=== PATIENT | male | born 1985 | race African-American/Black ===

== ENCOUNTER 2017-12-09 23:52 | Emergency (ER) | payer OTHER | END 2017-12-10 00:25 | disposition home or self-care (01) | LOC: MADERS 23:52 | DX: S60.461A Insect bite (nonvenomous) of left index finger, initial encounter (principal); L81.9 Disorder of pigmentation, unspecified; F17.210 Nicotine dependence, cigarettes, uncomplicated; W57.XXXA Bitten or stung by nonvenomous insect and other nonvenomous arthropods, initial encounter | CPT/HCPCS: 99282 ==

== ENCOUNTER 2018-01-20 20:22 | Emergency (ER) | payer OTHER | END 2018-01-20 20:51 | disposition home or self-care (01) | LOC: MADERS 20:22 | DX: B35.3 Tinea pedis (principal); F17.210 Nicotine dependence, cigarettes, uncomplicated; F20.9 Schizophrenia, unspecified | CPT/HCPCS: 99283 ==

== ENCOUNTER 2018-08-22 18:57 | Emergency (ER) | payer OTHER ==
[2018-08-22] MEDS ORDERED: Tetracaine 0.5% OPHTH SOLN/PF 4 ML BOT ONE (19:11)
== END 2018-08-22 19:28 | disposition home or self-care (01) ==
LOC: MADERS 18:57
DX: H16.133 Photokeratitis, bilateral (principal); F20.9 Schizophrenia, unspecified; F17.210 Nicotine dependence, cigarettes, uncomplicated; Z71.6 Tobacco abuse counseling
CPT/HCPCS: 99406

== ENCOUNTER 2019-07-07 13:59 | Emergency (ER) | payer OTHER ==
[2019-07-07 14:43] LABS: Bilirubin Negative (Negative); Blood, Urine Negative (Negative); Clarity Clear (Clear); Glucose, Urine (Dipstick) Negative (Negative); Leukocyte Negative (Negative); Nitrite Negative (Negative); Protein, Urine (Dipstick) Negative (Neg-Trace); Urobilinogen 0.2 mg/dL (Less than 2)
[2019-07-07 14:50] LABS: Amphetamine Not Detected (NotDetected); Barbiturates Screen Not Detected (NotDetected); Benzodiazepine Screen Not Detected (NotDetected); Cocaine Metabolite Screen Not Detected (NotDetected); Medtox Control Line Valid? VALID (VALID); Methadone Not Detected (NotDetected); Methamphetamine Not Detected (NotDetected); Opiate Screen Not Detected (NotDetected); Oxycodone Screen Not Detected (NotDetected); Phencyclidine (PCP) Not Detected (NotDetected); THC/Cannabinoid Screen Not Detected (NotDetected); Tricyclic Screen Not Detected (NotDetected)
[2019-07-07 14:51] LABS: Hemoglobin 13.7 g/dL (14.0-18.0); Mean Corpuscular Hemoglobin 26.8 pg (27.0-31.0); Mean Corpuscular Volume 91.8 fL (78.0-98.0); White Blood Cell (WBC) Count 11.8 thou/uL (4.8-10.8)
[2019-07-07 14:52] LABS: %Basophils 1.1 % (0.0-1.0); %Eosinophils 1.2 % (0.0-10.0); %Monocytes 7.4 % (0.0-10.0); %Neutrophils 72.3 % (42.0-75.0); Mean Corpuscular HGB CONC 29.2 g/dL (32.0-36.0); Platelet Count 250 thou/uL (130-400); RBC Distribution Width 12.1 % (11.5-14.5)
[2019-07-07 14:53] LABS: #Basophils 0.1 thou/uL (0.0-0.2); #Eosinphils 0.1 thou/uL (0.0-0.7); #Lymphocytes 2.1 thou/uL (1.20-3.40); #Monocytes 0.9 thou/uL (0.11-0.59); #Neutrophils 8.5 thou/uL (1.40-6.50); Acetaminophen Less than 6.0 mcg/mL (10.0-30.0); Alcohol Less than 10 mg/dL (Less than 10); Salicylate Less than 8.0 mg/dL (15.0-30.0)
[2019-07-07 14:55] LABS: ALT (SGPT) 32 U/L (8-55); AST (SGOT) 23 U/L (5-34); Albumin 4.1 g/dL (3.5-5.0); Alkaline Phosphatase 86 U/L (40-110); Anion Gap 15 mmol/L (10-20); BUN (Urea Nitrogen) 11 mg/dL (8.9-20.6); Bilirubin, Total 0.3 mg/dL (0.2-1.2); CK (CPK) 194 U/L (30-200); Calc. Creatinine Clearance 0 mL/min (70-130); Calcium 8.8 mg/dL (7.8-10.44); Carbon Dioxide 22 mmol/L (22-29); Chloride 106 mmol/L (98-107); Estimated GFR-MDRD Greater than 90; Globulin 2.9 g/dL (2.4-3.5); Glucose 132 mg/dL (70-105); Potassium 4.7 mmol/L (3.5-5.1); Sodium 138 mmol/L (136-145)
== END 2019-07-07 20:25 | disposition short-term general hospital (02) ==
LOC: MADERS 13:59
DX: R44.0 Auditory hallucinations (principal); F17.210 Nicotine dependence, cigarettes, uncomplicated
CPT/HCPCS: 36415; 80053; 80306; 80307; 81003; 82550; 84443; 85025; 99285

== ENCOUNTER 2019-07-24 11:31 | Outpatient (CLI) | payer OTHER ==
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
== END 2019-07-24 11:32 | disposition home or self-care (01) ==
LOC: MADRAD 11:31
PROVIDERS: ATTEND Family Medicine
DX: R07.81 Pleurodynia (principal)

== ENCOUNTER 2021-02-21 09:05 | Emergency (ER) | payer OTHER | END 2021-02-21 09:53 | disposition home or self-care (01) | LOC: MADERS 09:05 | DX: L03.032 Cellulitis of left toe (principal); F17.210 Nicotine dependence, cigarettes, uncomplicated ==

== ENCOUNTER 2021-05-31 19:52 | Emergency (ER) | payer OTHER | END 2021-05-31 20:05 | LOC: MADERS 19:52 | DX: F10.129 Alcohol abuse with intoxication, unspecified (principal); F17.210 Nicotine dependence, cigarettes, uncomplicated | CPT/HCPCS: 99284 ==